=== PATIENT | female | born 1970 | race Caucasian/White ===

== ENCOUNTER 2016-05-27 22:22 | Emergency (ER) ==
[2016-05-27] MEDS ORDERED: COMPAZINE IV ONE (23:46)
[2016-05-27] MEDS ORDERED: TORADOL IV ONE (23:46)
[2016-05-27] MEDS ORDERED: BENADRYL IV ONE (23:46)
[2016-05-27] MEDS ORDERED: NS 500 ML IV ONE (23:47)
--- NOTE | 2016-05-27 23:52 | PROVIDER DOCUMENTATION ---
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 PT states that she has been taking her prescribed medications with no relief. PT states that she developed nausea today. Headache Location: reports: occipital Quality of Pain: reports: aching Severity: reports: mild Onset/Duration: reports: 1 week ago Timing: reports: still present Headache History: reports: history of migraines Headache severity at the maximum: mild Headache Exacerbated by:: reports: light, noise Associated Symptoms: reports: headache, nausea Similar Symptoms Previously?: Yes Recently seen or treated by another doctor?: No Review of Systems - Adult - REVIEW OF SYSTEMS - ADULT Constitutional: denies: chills, fever Eyes: reports: no symptoms reported Ears, Nose, Mouth & Throat: reports: no symptoms reported Cardiovascular: denies: chest pain, palpitations Respiratory: denies: cough, shortness of breath Gastrointestinal: reports: nausea. denies: abdominal pain, vomiting Genitourinary: denies: dysuria, hematuria Musculoskeletal: denies: back pain, neck pain Integumentary: reports: no symptoms reported Neurological: reports: headache/migraines. denies: dizziness/vertigo Psychiatric: reports: no symptoms reported Endocrine: reports: no symptoms reported Hematologic/Lymphatic: reports: no symptoms reported Allergic/Immunologic: reports: no symptoms reported All Other Systems: Reviewed and Negative Past History - Adult - PAST MEDICAL HISTORY-ADULT Review of Records: reports: Nursing Assessment Review, Medications Reviewed Major Childhood Illnesses: reports: denies history Cardiovascular: reports: HTN, hyperlipidemia Neurological: reports: headaches/migraines Psychiatric: reports: other (adhd) Endocrine/Immune: reports: thyroid disorder - PRIOR SURGERIES/PROCEDURES Surgical/Procedure History: reports: hysterectomy, tonsillectomy - IMMUNIZATION STATUS Childhood Immunizations: See Nurse Assessment Flu Vaccine: See Nurse Assessment - FAMILY HISTORY Family History: reviewed, not pertinent - SOCIAL HISTORY Smoking: non-smoker Substance Use: none/never Alcohol Use Frequency: occasionally Physical Exam- Neurological - Physical Exam-Neuro Initial Vital Signs Reviewed: Yes General Appearance: appears well, alert, no apparent distress Eye Exam: bilateral eye: normal inspection, PERRL, EOMI, photophobia Head Injury: no evidence of injury Respiratory: chest non-tender, lungs clear, normal breath sounds Cardiovascular: normal peripheral pulses, regular rate, rhythm, no edema Abdominal Exam: non tender, soft Extremity: non-tender, normal inspection, no pedal 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: normal hearing, normal speech, PERRL Motor/Sensory: no motor deficit, no sensory deficit, no pronator drift, negative Babinski's sign Neurologic: 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 II-XII nml as tested, no motor/sensory deficits Integumentary: normal color, normal turgor, warm/dry Psych/Mental Status: AL, normal mood/affect, normal thought content, normal thought process, oriented x 3 Progress - PLAN OF CARE/RESULTS Progress/Plan/Lab Results: plan of care: medications Orders Category Date Time Status 0.9% Sodium Chloride Inj [Ns] 500 ml Med 05/27/16 23:47 Discontinued IV 999 mls/hr Diphenhydramine [Benadryl] Med 05/27/16 23:46 Discontinued 25 mg IV NOW ONE Ketorolac [Toradol] Med 05/27/16 23:46 Discontinued 30 mg IV NOW ONE Prochlorperazine [Compazine] Med 05/27/16 23:46 Discontinued 10 mg IV NOW ONE Vital Signs - 24 hr 05/27/16 22:31 Temperature 97.5 F L Pulse Rate 86 Respiratory 18 Rate Blood Pressure 152/96 O2 Sat by Pulse 97 Oximetry Pt given results and will be d/c home w/o rx to follow up with PCP. Pt verbally understood instructions. PT remained clinically stable throughout the course of the ED stay and will return if symptoms worsen. - REASSESSMENT Reassessment #1 Time Reassessed: 01:14 Status: improving Reassessment Comment: headache and nausea free. PT will be d/c home Departure - Departure Time of Disposition Order: 01:15 DIAGNOSIS: Migraine Qualifiers: Migraine type: unspecified Status migrainosus presence: without status migrainosus Intractability: not intractable Qualified Code(s): G43.909 - Migraine, unspecified, not intractable, without status migrainosus Disposition: HOME 01 Certified Medical Emergency: Emergent Condition: Good Additional Instructions: Follow up with primary care doctor. Return to ED for any new or worsening symptoms. ED Follow Up Instructions: You have been treated by a care provider in the Emergency Department. These instructions are being provided to you so you can have an understanding of how to care for yourself upon discharge. Upon discharge from the Emergency Department, you are responsible for making arrangements for follow-up care by a physician of your choice. Take all prescribed medications as directed. Return to the Emergency Department immediately for any new or worsening symptoms. You may call the Physician Referral phone number at [phone] to obtain a list of Physicians who are taking new patients. Referrals: Clinton Castro [Primary Care Provider] - Attestation - Scribe Verification/Attestation Scribe:: Delmi Burris Acting as Scribe for:: Gautam Cam Scribe documention review:: This chart was documented by a scribe and accurately reflects the service the provider performed and the decisions made by the provider. Physician Attestation - Physician Attestation I, the provider, attest to the following statement:: Gautam Cam Physician documentation Attestation:: This documentation recorded by the scribe accurately reflects the service I personally performed and the decisions made by me.
[2016-05-28 01:25] VITALS: BP 134/86
== END 2016-05-28 01:24 | disposition home or self-care (01) ==
LOC: ED 22:22
DX: G43.909 Migraine, unspecified, not intractable, without status migrainosus (principal); R51 Headache; R11.0 Nausea; I10 Essential (primary) hypertension; E78.5 Hyperlipidemia, unspecified; F90.9 Attention-deficit hyperactivity disorder, unspecified type; E07.9 Disorder of thyroid, unspecified; Z79.899 Other long term (current) drug therapy
CPT/HCPCS: 96374; 96375; J0780; J1200; J1885; J7040